=== PATIENT | female | born 1945 | race Caucasian/White ===

== ENCOUNTER 2016-04-15 12:53 | Outpatient (CLI) | payer OTHER | END 2016-04-15 23:00 | LOC: LAB SRH 12:53 | DX: M12.9 Arthropathy, unspecified (principal); G89.4 Chronic pain syndrome | CPT/HCPCS: 90074; 90100; 90257; 91490; 91511; 91585; 91816; 91817; 92180; 92800; 94001; 94043; 94060; 97225; 98020; 98460; 99098 ==

== ENCOUNTER 2016-07-30 08:20 | Emergency (ER) | payer OTHER ==
--- NOTE | 2016-07-30 09:30 | DIAGNOSTIC IMAGING REPORT ---
PROCEDURE: XR FOOT 3 VIEWS - LEFT INDICATION: TRAUMA/INJURY TECHNIQUE: Three views. COMPARISON: None. FINDINGS: Nondisplaced slightly comminuted fracture of the left fifth metatarsal neck and head. Mild first MTP joint degenerative changes. Calcaneal spurs on the plantar aspect and at the Achilles tendon insertion. Soft tissues are unremarkable. IMPRESSION: 1. Nondisplaced left fifth metatarsal fracture
--- NOTE | 2016-07-30 09:31 | DIAGNOSTIC IMAGING REPORT ---
PROCEDURE: XR ANKLE 3 OR 4 VIEWS - LEFT INDICATION: TRAUMA/INJURY TECHNIQUE: Four views. COMPARISON: None. FINDINGS: Osseous structures, joint spaces and soft tissues are normal. Ankle mortise is normal. IMPRESSION: 1. Normal left ankle.
--- NOTE | 2016-07-30 09:46 | ED NURSING NOTES ---
Clinical Report - Nurses [facility] [address] [place] [address] 07/30/2016 8:30 [id number] Triage time 08:32 Jul 30 2016. Acuity: LEVEL 4. Chief Complaint: INJURY TO LEFT FOOT. SEPSIS SCREEN: Sepsis Screen. Negative (no infection suspected/documented). KARLIE COMA SCORE: [place] Coma Scale: 15- eyes open spontaneously (4); best verbal response- oriented x 4 (5); best motor response- obeys commands (6). --08:42 Jeaneth Maddox R.N. 08:32 07/30/16. BP: 122/59 (regular adult cuff) taken on the left arm, while sitting. HR: 51. RR: 18. O2 saturation: 98% on room air. Temp: 97.8 F (oral). Pain level now: 6/10. Additional comments: with rest and 10/10 when standing. --08:42 Jeaneth Maddox R.N. 08:42 07/30/16. --08:42 Jeaneth Maddox R.N. 08:48 07/30/16. --08:48 Jeaneth Maddox R.N. Weight: 66.6 kg stated. Height/Length: 63 inches Per Patient. BMI: 26. --08:37 Jeaneth Maddox R.N. Medications Lisinopril Oral (Tablet 40 mg) 1 tablet, daily. --08:34 Jeaneth Maddox R.N. Aspirin Oral (Tablet Chewable 81 mg) 1 tablet, daily. --08:35 Jeaneth Maddox R.N. Vitamins/Minerals Oral. --08:35 Jeaneth Maddox R.N. Omeprazole Oral (Tablet Delayed Release 20 mg) 1 tablet, daily. --08:35 Jeaneth Maddox R.N. Hydrochlorothiazide Oral. Water Pill. --08:36 Jeaneth Maddox R.N. Allergies No Known Drug Allergy. --08:34 Jeaneth Maddox R.N. History Arrived by EMS. Historian: patient. Primary physician (KINDRA VERDIN). This occurred last night. Occurred at home. Mechanism of injury: sustained a twisting injury and fell. ( Patient was walking in home around 1999 last night, she woke up and was unable to walk on it). She has had trouble walking. Treatment [place]: None. PAST MEDICAL HX: Hypertension. COPD. Tetanus status: up-to-date. SOCIAL HX: Current every day light tobacco smoker- less than 1/2 a pack per day. Occasional alcohol use; consumes beer. No drug use. No infectious disease exposure. ABUSE ASSESSMENT: No report of abuse. --08:42 Jeaneth Maddox R.N. ( She twisted her left ankle falling to the floor). --08:48 Jeaneth Maddox R.N. PROBLEMS: GERD. Hypertension. COPD - Chronic Obstructive Pulmonary Disease. --08:38 Jeaneth Maddox R.N. Degenerative Joint Disease. --08:38 Jeaneth Maddox R.N. ADDITIONAL SURGERIES: Ectopic pregnancies. --08:38 Jeaneth Maddox R.N. Interventions ID band on patient. To treatment room. --08:42 Jeaneth Maddox R.N. PHYSICAL ASSESSMENT 08:43 07/30/16. To room via stretcher. Patient gowned. GENERAL / NEURO / PSYCH: Oriented X 4. Appears in pain. EXTREMITIES: Limited ROM present in the left ankle and left foot. Capillary refill is less than 2 seconds in the extremities. Extremity pulses are within normal limits. Pain with weight bearing. The patient was unable to bear weight. Left foot: tenderness and erythema of the distal aspect of the mid foot. SKIN: Skin intact. Skin is warm. --08:43 Jeaneth Maddox R.N. NURSING PROGRESS NOTES 08:43 07/30/16. The plan of care for this patient has been created. Cold pack applied. Extremity elevated. Reassurance given. Two patient identifiers checked. Call light placed in reach. Side rails up x 2. Bed placed in lowest position. Brakes of bed on. Patient ready for evaluation- chart flagged and ED physician notified. --08:43 Jeaneth Maddox R.N. ( Xray in with patient). --09:14 Jeaneth Maddox R.N. 09:20 07/30/16. ( X-ray completed at bedside). --09:20 Gopal Haynes R.N. Short arm and leg posterior fiberglass lower extremity splint applied to left leg, ankle and foot by tech. Distal pulses intact, sensation intact and motor within normal limits. --10:19 India Noel, ER Tech1 Patient fit with new crutches. --10:19 India Noel, ER Tech1. DISPOSITION / DISCHARGE 10:11 07/30/16. Condition at departure: improved. No learning barriers present. Reviewed medication(s) side effects, precautions and dosing information. Prescription(s) given to the patient. Reviewed referral to a riveter hand. Activity restrictions (minimal use of injured extremity and rest) reviewed. Patient verbalized understanding. Written instructions provided in Kyrgyz. The patient was discharged by the physician. She was discharged home. She left the Emergency Department ambulatory and via private vehicle. Family member driving. --10:12 Jeaneth Maddox R.N. 10:10 07/30/16. RR: 18. O2 saturation: 100% on room air. --10:12 Jeaneth Maddox R.N. Departure time: 10:Jul 30 2016. --10:12 Jeaneth Maddox R.N. Locked/Released at 07/30/2016 13:59 by Jeaneth Maddox R.N.
--- NOTE | 2016-07-30 09:46 | ED CLINICAL REPORT ---
Clinical Report - Physicians/Mid Levels Located Within [facility] [address] [place] [address] 07/30/2016 8:30 Patient: JOSE ALBERTO LAZCANO Time Seen: 08:48 Jul 30 2016. Arrived- By private vehicle. Historian- patient. CPT: ER phys charges level 3 plus (#018715). HISTORY OF PRESENT ILLNESS Chief Complaint: INJURY TO LEFT LOWER EXTREMITY (FOOT). Location of injuries- left foot. The injury occurred last night. Occurred at home. ( Patient was walking in home around 1999 last night, she woke up and was unable to walk on it). She has had trouble walking.). Fell. The patient complains of moderate pain. No blow to the head, neck pain or loss of consciousness. REVIEW OF SYSTEMS The patient complains of pain on weight bearing. No numbness, chest pain, difficulty breathing, headache or nausea. No abdominal pain, laceration or vomiting. All systems otherwise negative, except as recorded above. PAST HISTORY GERD. Hypertension. COPD - Chronic Obstructive Pulmonary Disease. --08:38 Jeaneth Maddox R.N. Degenerative Joint Disease. - ADDITIONAL SURGERIES: Ectopic pregnancies. Medications: Hydrochlorothiazide Oral. Water Pill. Omeprazole Oral (Tablet Delayed Release 20 mg) 1 tablet, daily. Vitamins/Minerals Oral. Aspirin Oral (Tablet Chewable 81 mg) 1 tablet, daily. Lisinopril Oral (Tablet 40 mg) 1 tablet, daily. Allergies: No Known Drug Allergy. SOCIAL HISTORY Heavy tobacco smoker (cigarette)- less than 1 pack per day. Occasional alcohol use. ADDITIONAL NOTES The nursing notes have been reviewed. PHYSICAL EXAM Vital Signs: 07/30/2016 08:32 BP: 122/59. HR: 51. RR: 18. O2 saturation: 98%. Temp: 97.8 F. Pain level now: 6/10. Appearance: Alert. Patient in mild distress. Head: Head non-tender. Neck: Painless ROM. Non-tender. CVS: Heart sounds normal. Respiratory: Chest nontender. Abdomen: Nontender. Back: No tenderness. Skin: Skin intact. Skin warm. Normal skin color. Extremities: Left foot: mild erythema and swelling and moderate tenderness of the distal aspect of the foot. Limited weight bearing secondary to pain. Neurovascular intact distally. No abrasion, ecchymosis or deformity. Neuro: Oriented X 3. No motor deficit. No sensory deficit. Reflexes normal. LABS, X-RAYS, AND EKG X-Rays: Left ankle negative. Lt Foot X-ray: (Distal 5th metatarsal fracture.). Views: 3 view foot series. Technique: good. The X-rays were independently viewed by me and interpreted contemporaneously by me. PROGRESS AND PROCEDURES Splint Application: Posterior short leg fiberglass splint applied to left foot and ankle. Splint applied by tech with direct supervision by the ED physician. Reassessed extremity following splint application. Neurovascular intact. Follow-up recommended within 7 days. Fitted for crutches by the tech. Patient/family counseled. Disposition: Discharged. Condition: stable. CLINICAL IMPRESSION Closed nondisplaced and mildly angulated oblique fracture of the left fifth metatarsal. Fall on same level by tripping. INSTRUCTIONS Use crutches until released. Elevate affected areas above chest level today. Wear fiberglass splint until released. No weight bearing left leg until released. Warnings: GENERAL WARNINGS: Return or contact your physician immediately if your condition worsens or changes unexpectedly, if not improving as expected, or if other problems arise. Prescription Medications: Hydrocodone/APAP 5mg/325mg: take 1 to 2 orally every 6 hours as needed for pain. Dispense fifteen (15). No refills. Understanding of the discharge instructions verbalized by patient. Follow-up with: Avery Chaves DPM, Podiatry, , [facility], [address] [place] [address], [address] [place] [address] Follow up in one week. Call for an appointment. (Electronically signed by Abelino Magallanes MD 07/31/2016 20:58)
--- NOTE | 2016-07-30 09:46 | ED CLINICAL REPORT ---
Clinical Report - Physicians/Mid Levels [facility] [address] [place] [address] 07/30/2016 8:30 Patient: JOSE ALBERTO LAZCANO Time Seen: 08:48 Jul 30 2016. Arrived- By private vehicle. Historian- patient. CPT: ER phys charges level 3 plus (#[id number]). HISTORY OF PRESENT ILLNESS Chief Complaint: INJURY TO LEFT LOWER EXTREMITY (FOOT). Location of injuries- left foot. The injury occurred last night. Occurred at home. ( Patient was walking in home around 1999 last night, she woke up and was unable to walk on it). She has had trouble walking.). Fell. The patient complains of moderate pain. No blow to the head, neck pain or loss of consciousness. REVIEW OF SYSTEMS The patient complains of pain on weight bearing. No numbness, chest pain, difficulty breathing, headache or nausea. No abdominal pain, laceration or vomiting. All systems otherwise negative, except as recorded above. PAST HISTORY GERD. Hypertension. COPD - Chronic Obstructive Pulmonary Disease. --08:38 Jeaneth Maddox R.N. Degenerative Joint Disease. - ADDITIONAL SURGERIES: Ectopic pregnancies. Medications: Hydrochlorothiazide Oral. Water Pill. Omeprazole Oral (Tablet Delayed Release 20 mg) 1 tablet, daily. Vitamins/Minerals Oral. Aspirin Oral (Tablet Chewable 81 mg) 1 tablet, daily. Lisinopril Oral (Tablet 40 mg) 1 tablet, daily. Allergies: No Known Drug Allergy. SOCIAL HISTORY Heavy tobacco smoker (cigarette)- less than 1 pack per day. Occasional alcohol use. ADDITIONAL NOTES The nursing notes have been reviewed. PHYSICAL EXAM Vital Signs: 07/30/2016 08:32 BP: 122/59. HR: 51. RR: 18. O2 saturation: 98%. Temp: 97.8 F. Pain level now: 6/10. Appearance: Alert. Patient in mild distress. Head: Head non-tender. Neck: Painless ROM. Non-tender. CVS: Heart sounds normal. Respiratory: Chest nontender. Abdomen: Nontender. Back: No tenderness. Skin: Skin intact. Skin warm. Normal skin color. Extremities: Left foot: mild erythema and swelling and moderate tenderness of the distal aspect of the foot. Limited weight bearing secondary to pain. Neurovascular intact distally. No abrasion, ecchymosis or deformity. Neuro: Oriented X 3. No motor deficit. No sensory deficit. Reflexes normal. LABS, X-RAYS, AND EKG X-Rays: Left ankle negative. Lt Foot X-ray: (Distal 5th metatarsal fracture.). Views: 3 view foot series. Technique: good. The X-rays were independently viewed by me and interpreted contemporaneously by me. PROGRESS AND PROCEDURES Splint Application: Posterior short leg fiberglass splint applied to left foot and ankle. Splint applied by tech with direct supervision by the ED physician. Reassessed extremity following splint application. Neurovascular intact. Follow-up recommended within 7 days. Fitted for crutches by the tech. Patient/family counseled. Disposition: Discharged. Condition: stable. CLINICAL IMPRESSION Closed nondisplaced and mildly angulated oblique fracture of the left fifth metatarsal. Fall on same level by tripping. INSTRUCTIONS Use crutches until released. Elevate affected areas above chest level today. Wear fiberglass splint until released. No weight bearing left leg until released. Warnings: GENERAL WARNINGS: Return or contact your physician immediately if your condition worsens or changes unexpectedly, if not improving as expected, or if other problems arise. Prescription Medications: Hydrocodone/APAP 5mg/325mg: take 1 to 2 orally every 6 hours as needed for pain. Dispense fifteen (15). No refills. Understanding of the discharge instructions verbalized by patient. Follow-up with: Avery Chaves DPM, Podiatry, , [facility], [address] [place] [address], [address] [place] [address] Follow up in one week. Call for an appointment. (Electronically signed by Abelino Magallanes MD 07/31/2016 20:58)
--- NOTE | 2016-07-30 09:46 | ED NURSING NOTES ---
Clinical Report - Nurses [facility] [address] [place] [address] 07/30/2016 8:30 [id number] Triage time 08:32 Jul 30 2016. Acuity: LEVEL 4. Chief Complaint: INJURY TO LEFT FOOT. SEPSIS SCREEN: Sepsis Screen. Negative (no infection suspected/documented). KARLIE COMA SCORE: [place] Coma Scale: 15- eyes open spontaneously (4); best verbal response- oriented x 4 (5); best motor response- obeys commands (6). --08:42 Jeaneth Maddox R.N. 08:32 07/30/16. BP: 122/59 (regular adult cuff) taken on the left arm, while sitting. HR: 51. RR: 18. O2 saturation: 98% on room air. Temp: 97.8 F (oral). Pain level now: 6/10. Additional comments: with rest and 10/10 when standing. --08:42 Jeaneth Maddox R.N. 08:42 07/30/16. --08:42 Jeaneth Maddox R.N. 08:48 07/30/16. --08:48 Jeaneth Maddox R.N. Weight: 66.6 kg stated. Height/Length: 63 inches Per Patient. BMI: 26. --08:37 Jeaneth Maddox R.N. Medications Lisinopril Oral (Tablet 40 mg) 1 tablet, daily. --08:34 Jeaneth Maddox R.N. Aspirin Oral (Tablet Chewable 81 mg) 1 tablet, daily. --08:35 Jeaneth Maddox R.N. Vitamins/Minerals Oral. --08:35 Jeaneth Maddox R.N. Omeprazole Oral (Tablet Delayed Release 20 mg) 1 tablet, daily. --08:35 Jeaneth Maddox R.N. Hydrochlorothiazide Oral. Water Pill. --08:36 Jeaneth Maddox R.N. Allergies No Known Drug Allergy. --08:34 Jeaneth Maddox R.N. History Arrived by EMS. Historian: patient. Primary physician (KINDRA VERDIN). This occurred last night. Occurred at home. Mechanism of injury: sustained a twisting injury and fell. ( Patient was walking in home around 1999 last night, she woke up and was unable to walk on it). She has had trouble walking. 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 PAST MEDICAL HX: Hypertension. COPD. Tetanus status: up-to-date. SOCIAL HX: Current every day light tobacco smoker- less than 1/2 a pack per day. Occasional alcohol use; consumes beer. No drug use. No infectious disease exposure. ABUSE ASSESSMENT: No report of abuse. --08:42 Jeaneth Maddox R.N. ( She twisted her left ankle falling to the floor). --08:48 Jenaeth Maddox R.N. PROBLEMS: GERD. Hypertension. COPD - Chronic Obstructive Pulmonary Disease. --08:38 Jeaneth Maddox R.N. Degenerative Joint Disease. --08:38 Jeaneth Maddox R.N. ADDITIONAL SURGERIES: Ectopic pregnancies. --08:38 Jeaneth Maddox R.N. Interventions ID band on patient. To treatment room. --08:42 Jeaneth Maddox R.N. PHYSICAL ASSESSMENT 08:43 07/30/16. To room via stretcher. Patient gowned. GENERAL / NEURO / PSYCH: Oriented X 4. Appears in pain. EXTREMITIES: Limited ROM present in the left ankle and left foot. Capillary refill is less than 2 seconds in the extremities. Extremity pulses are within normal limits. Pain with weight bearing. The patient was unable to bear weight. Left foot: tenderness and erythema of the distal aspect of the mid foot. SKIN: Skin intact. Skin is warm. --08:43 Jeaneth Maddox R.N. NURSING PROGRESS NOTES 08:43 07/30/16. The plan of care for this patient has been created. Cold pack applied. Extremity elevated. Reassurance given. Two patient identifiers checked. Call light placed in reach. Side rails up x 2. Bed placed in lowest position. Brakes of bed on. Patient ready for evaluation- chart flagged and ED physician notified. --08:43 Jeaneth Maddox R.N. ( Xray in with patient). --09:14 Jeaneth Maddox R.N. 09:20 07/30/16. ( X-ray completed at bedside). --09:20 Gopal Haynes R.N. Short arm and leg posterior fiberglass lower extremity splint applied to left leg, ankle and foot by tech. Distal pulses intact, sensation intact and motor within normal limits. --10:19 India Noel, ER Tech1 Patient fit with new crutches. --10:19 India Noel, ER Tech1. DISPOSITION / DISCHARGE 10:11 07/30/16. Condition at departure: improved. No learning barriers present. Reviewed medication(s) side effects, precautions and dosing information. Prescription(s) given to the patient. Reviewed referral to a upper trimmer. Activity restrictions (minimal use of injured extremity and rest) reviewed. Patient verbalized understanding. Written instructions provided in Hungarian. The patient was discharged by the physician. She was discharged home. She left the Emergency Department ambulatory and via private vehicle. Family member driving. --10:12 Jeaneth Maddox R.N. 10:10 07/30/16. RR: 18. O2 saturation: 100% on room air. --10:12 Jeaneth Maddox R.N. Departure time: 10:Jul 30 2016. --10:12 Jeaneth Maddox R.N. Locked/Released at 07/30/2016 13:59 by Jeaneth Maddox R.N.
--- NOTE | 2016-07-30 09:46 | ED ORDER SUMMARY ---
..... Patient: JOSE ALBERTO LAZCANO OrderSheet [facility] VisitID: [id number] [address] [place] [address] 70y, F Registration Date/Time: 07/30/2016 ORDER SHEET Weight: 66.6 kg (stated) Allergies: No Known Drug Allergy GENERAL ORDERS: Foot 3V Left Urgent (08:44 07/30/2016 JBalexy R.N. per protocol) (Ack 8:46 PWeiler ER Tech1) (9:20 KHoerner) (9:20 PWeiler ER Tech1) Ankle 3 or 4V Left Urgent (08:44 07/30/2016 JBalexy R.N. per protocol) (Ack 8:46 PWeiler ER Tech1) (9:20 KHoerner) (9:20 PWeiler ER Tech1) Splint (LE) (Left) (Short Leg Posterior) (Fiberglass) (09:43 07/30/2016 Waleska PETE) (Ack 9:52 KHoerner) (9:52 KHoerner) Crutches (09:43 07/30/2016 Waleska PETE) (Ack 9:52 KHoerner) (9:52 KHoerner) MEDICATION ORDERS: IV FLUIDS: ORDER SHEET NOTES: [Electronically signed by Jeaneth Maddox R.N. (13:59 07/30/2016)] [Electronically signed by Abelino Magallanes MD (20:58 07/31/2016)] [Electronically locked/signed by Jeaneth Maddox R.N. (13:59 07/30/2016)]
--- NOTE | 2016-07-30 09:46 | ED ORDER SUMMARY ---
..... Patient: JOSE ALBERTO LAZCANO OrderSheet [facility] VisitID: [id number] [address] [place] [address] 70y, F Registration Date/Time: 07/30/2016 ORDER SHEET Weight: 66.6 kg (stated) Allergies: No Known Drug Allergy GENERAL ORDERS: Foot 3V Left Urgent (08:44 07/30/2016 JBalexy R.N. per protocol) (Ack 8:46 PWeiler ER Tech1) (9:20 KHoerner) (9:20 PWeiler ER Tech1) Ankle 3 or 4V Left Urgent (08:44 07/30/2016 JBalexy R.N. per protocol) (Ack 8:46 PWeiler ER Tech1) (9:20 KHoerner) (9:20 PWeiler ER Tech1) Splint (LE) (Left) (Short Leg Posterior) (Fiberglass) (09:43 07/30/2016 Waleska PETE) (Ack 9:52 KHoerner) (9:52 KHoerner) Crutches (09:43 07/30/2016 Waleska PETE) (Ack 9:52 KHoerner) (9:52 KHoerner) MEDICATION ORDERS: IV FLUIDS: ORDER SHEET NOTES: [Electronically signed by Jeaneth Maddox R.N. (13:59 07/30/2016)] [Electronically signed by Abelino Magallanes MD (20:58 07/31/2016)] [Electronically locked/signed by Jeaneth Maddox R.N. (13:59 07/30/2016)]
--- NOTE | 2016-07-31 20:58 | ED MED RECONCILIATION SUMMARY ---
Patient: JOSE ALBERTO LAZCANO Medication Reconciliation Report [facility] VisitID: [id number] [address] [place] [address] 70y, F Registration Date/Time: 07/30/2016 Weight: 66.6 kg Height/Length: 63 in. BMI: 26.0 ALLERGIES: No Known Drug Allergy The patient's Home Medications are listed below: THE FOLLOWING MEDICATIONS NEED TO BE RECONCILED: Aspirin Oral (81 mg) 1 tablet, daily Hydrochlorothiazide Oral Lisinopril Oral (40 mg) 1 tablet, daily Omeprazole Oral (20 mg) 1 tablet, daily Vitamins/Minerals Oral Water Pill The source(s) of the original Home Medication information: Not obtained. The following Medications were given to the patient in the Emergency Department: None. The following Medications were prescribed to the patient: Hydrocodone/APAP 5mg/325mg: take 1 to 2 orally every 6 hours as needed for pain. Dispense fifteen (15). No refills. -- Abelino Magallanes MD
--- NOTE | 2016-07-31 20:58 | ED MAR SUMMARY ---
..... Medication Administration Record [facility] [address] [place], [place] [id number] Patient: JOSE ALBERTO LAZCANO Visit ID: [id number] 70y, F Weight: 66.6 kg Height/Length: 63 in BMI: 26 ALLERGIES: No Known Drug Allergy
--- NOTE | 2016-07-31 20:58 | ED MED RECONCILIATION SUMMARY ---
Patient: JOSE ALBERTO LAZCANO Medication Reconciliation Report [facility] VisitID: [id number] [address] [place] [address] 70y, F Registration Date/Time: 07/30/2016 Weight: 66.6 kg Height/Length: 63 in. BMI: 26.0 ALLERGIES: No Known Drug Allergy The patient's Home Medications are listed below: THE FOLLOWING MEDICATIONS NEED TO BE RECONCILED: Aspirin Oral (81 mg) 1 tablet, daily Hydrochlorothiazide Oral Lisinopril Oral (40 mg) 1 tablet, daily Omeprazole Oral (20 mg) 1 tablet, daily Vitamins/Minerals Oral Water Pill The source(s) of the original Home Medication information: Not obtained. The following Medications were given to the patient in the Emergency Department: None. The following Medications were prescribed to the patient: Hydrocodone/APAP 5mg/325mg: take 1 to 2 orally every 6 hours as needed for pain. Dispense fifteen (15). No refills. -- Abelino Magallanes MD
--- NOTE | 2016-07-31 20:58 | ED MAR SUMMARY ---
..... Medication Administration Record [facility] [address] [place], [place] [id number] Patient: JOSE ALBERTO LAZCANO Visit ID: [id number] 70y, F Weight: 66.6 kg Height/Length: 63 in BMI: 26 ALLERGIES: No Known Drug Allergy
--- NOTE | 2016-07-31 20:58 | ED DISCHARGE INSTRUCTIONS ---
Patient: JOSE ALBERTO LAZCANO General Instructions [facility] VisitID: [id number] [place] [address] 70y, F Registration Date/Time: 07/30/2016 Closed nondisplaced and mildly angulated oblique fracture of the left fifth metatarsal. Fall on same level by tripping. INSTRUCTIONS Use crutches until released. Elevate affected areas above chest level today. Wear fiberglass splint until released. No weight bearing left leg until released. Warnings: GENERAL WARNINGS: Return or contact your physician immediately if your condition worsens or changes unexpectedly, if not improving as expected, or if other problems arise. Prescription Medications: Hydrocodone/APAP 5mg/325mg: take 1 to 2 orally every 6 hours as needed for pain. Dispense fifteen (15). No refills. Understanding of the discharge instructions verbalized by patient. Follow-up with: Avery Chaves DPM, Podiatry, , [facility], [address] [place] [address], [address] [address] Follow up in one week. Call for an appointment. ADDITIONAL INFORMATION Mechanical Fall You have had a fall today. It appears that the cause is mechanical. That means that you slipped, tripped or lost your balance. If your fall had been due to fainting or a seizure, further tests would be required. Home Care: Rest today and resume your normal activities when you are feeling back to normal. If you were injured during the fall, follow the advice from your doctor regarding care of your injury. You may use acetaminophen (Tylenol) or ibuprofen (Motrin, Advil) to control pain, unless another pain medicine was prescribed. [NOTE: If you have chronic liver or kidney disease or ever had a stomach ulcer or GI bleeding, talk with your doctor before using these medicines.] Fall Prevention: Was there anything that caused your fall that can be fixed, removed, or replaced? Make your home safe by keeping walkways clear of objects you may trip over. Use non-slip pads under rugs. Do not walk in poorly lit areas. Do not stand on chairs or wobbly ladders. Use caution when reaching overhead or looking upward. This position can cause a loss of balance. Be sure your shoes fit properly, have non-slip bottoms and are in good condition. Be cautious when going up and down curbs, and walking on uneven sidewalks. If your balance is poor, consider using a cane or walker. Stay as active as you can. Balance, flexibility, strength, and endurance all come from exercise. They all play a role in preventing falls. Follow Up with your doctor or as advised by our staff. Get Prompt Medical Attention if any of the following occur: Repeated mechanical falls, or unexplained falls Dizziness, fainting or seizure Severe headache Chest pain or shortness of breath Palpitations (very rapid or very slow or irregular heartbeat) Blood in vomit, stools (black or red color) Weakness of an arm or leg or one side of the face Difficulty with speech or vision Fracture:Foot You have a fracture (break) of one of the bones in your foot. This will cause pain, swelling and sometimes bruising. It will take about 4-6 weeks to heal. A foot fracture may be treated with a special shoe, splint, cast or boot. Home Care: You may be given a splint, cast, shoe or boot to prevent movement at the injury. Unless you were told otherwise, use crutches or a walker and do not bear weight on the injured foot until cleared by your doctor to do so. (Crutches and walkers can be rented at many pharmacies and surgical/orthopedic supply stores). Do not put weight on a splint; it will break. Keep your leg elevated to reduce pain and swelling. When sleeping, place a pillow under the injured leg. When sitting, support the injured leg so it is level with your waist. This is very important during the first 48 hours. Apply an ice pack (ice cubes in a plastic bag, wrapped in a towel) over the injured area for 20 minutes every 1-2 hours the first day. You can place the ice pack directly over the splint/cast. Unless told otherwise, you can open the boot or shoe to apply ice. Continue with ice packs 3-4 times a day for the next two days, then as needed for the relief of pain and swelling. Keep the splint/cast/boot/shoe dry. When bathing, protect it with a large plastic bag, rubber-banded at the top end. If a fiberglass splint/cast or boot gets wet, you can dry it with a hair-dryer. Unless told otherwise, you can remove a boot or shoe to bathe. You may use acetaminophen (Tylenol) or ibuprofen (Motrin, Advil) to control pain, unless another pain medicine was prescribed. [NOTE: If you have chronic liver or kidney disease or ever had a stomach ulcer or GI bleeding, talk with your doctor before using these medicines.] Follow Up with your doctor within one week, or as advised by our staff, to be sure the bone is healing properly. If you were given a splint, it may be changed to a cast or boot at your follow-up visit.[NOTE: A radiologist will review any X-rays that were taken. We will notify you of any new findings that may affect your care.] Get Prompt Medical Attention if any of the following occur: The plaster cast or splint becomes wet or soft The fiberglass cast or splint remains wet for more than 24 hours Increased tightness or pain under the cast or splint Toes become swollen, cold, blue, numb or tingly Crutch Walking Crutch Adjustment Make sure the crutches you use are adjusted to fit you. When you stand, there should be room to fit 2-3 fingers between the top of the crutch and your armpit. Your elbow should be slightly bent when holding the hand handle rounder operator. Crutch Walking: Place the crutches forward 12" in front of and 6" to the side of your feet. Lean your weight forward as you push down on the handgrips. Your weight should be on your hands and yourstrong leg, not your armpits . Let your body swing through, landing on the strong leg. Advance the crutches forward again. The crutch and the injured leg should move together. Going Up Steps: ("Up with the good") With both crutches on the same step as your feet, push down on the handgrips. Balancing with very light pressure on the weak leg, let your hands support your weight as you raise your strong leg onto the next higher step. Transfer all your weight to your strong leg (still bent) as you move the crutches up to the next step alongside the strong leg. With your weight evenly balanced on the two crutches and your strong leg, straighten your strong knee as you raise the weak leg up to the next step. Going Down Steps: ("Down with the bad") With both crutches on the same step as your feet, push down on the handgrips. With your weight evenly balanced on the two crutches and your strong leg, bend your strong knee as you lower the weak leg down to the next step. Let your strong leg support you (still bent) as you move the crutches down alongside the weak leg. Transfer your weight to your hands, balancing with very light pressure on the weak leg as you lower your strong leg alongside your weak leg. Splint Care, Fiberglass The following will help you care for your splint: It will take up totwo hours for your fiber glass splint to fully harden; therefore, do notapply any pressure on it during that time or else it may break. To prevent swelling under the splint, for thefirst 48 hours: If the splint is on yourarm, keep it in a sling or raised to shoulder level when sitting or standing; rest it on your chest or on a pillow at your side when lying down. If the splint is on yourfoot, keep it propped up above the level of your waist when sitting or lying. Avoid crutch walking as much as possible during this time. Keep the splint/cast dry at all times. Bathe with your splint/cast well out of the water, protected with a large plastic bag, rubber-banded at the top end. If a fiberglass cast or splint gets wet, you can dry it with a hair-dryer. Follow-up care Follow up with your doctor or this facility as advised. When to seek medical care Get prompt medical attention if any of the following occur: Bad odor from the splint or wound-fluid stains the splint The splint cracks or remains wet over 24 hours Increasing tightness or pressure under the splint Fingers or toes become swollen, cold, blue, numb or tingly Increased pain under the splint You have been given the following additional information: Fall, Mechanical Fracture, Foot Crutch Walking Splint Care, Fiberglass No weight bearing left leg until released. (Electronically signed by Abelino Magallanes MD 07/31/2016 20:58)
== END 2016-07-30 10:10 | disposition home or self-care (01) ==
LOC: ED SRH 08:20
DX: S92.355A Nondisplaced fracture of fifth metatarsal bone, left foot, initial encounter for closed fracture (principal); Z79.899 Other long term (current) drug therapy; W01.0XXA Fall on same level from slipping, tripping and stumbling without subsequent striking against object, initial encounter; Y93.9 Activity, unspecified; Y92.009 Unspecified place in unspecified non-institutional (private) residence as the place of occurrence of the external cause; Y99.9 Unspecified external cause status; I10 Essential (primary) hypertension; K21.9 Gastro-esophageal reflux disease without esophagitis; J44.9 Chronic obstructive pulmonary disease, unspecified; F17.210 Nicotine dependence, cigarettes, uncomplicated